=== PATIENT | female | born 1950 | race Caucasian/White ===

== ENCOUNTER 2018-10-06 08:53 | Outpatient (CLI) | payer MEDICARE ==
--- NOTE | 2018-10-06 12:01 | MRI ---
MRI OF THE TEMPEROMANDIBULAR JOINTS: History: Right sided jaw pain when chewing. Patient complains of her mouth only partially opening. Technique: Multiplanar, multisequence MRI images were obtained of the temporomandibular joints without contrast. FINDINGS: The temporomandibular joints are symmetric in appearance. The articular disc is interposed between th e eminence and the condyle. There is appropriate subluxation of the condyle out of the joint with debbie th opening. The articular disc is interposed between the eminence and the condyle with mouth opening. A small amount of fluid is seen in the right maxillary sinus. The visualized intracranial structures and globes are unremarkable. IMPRESSION: No significant temporomandibular joint abnormality. POS: [facility]
== END 2018-10-06 08:54 | disposition home or self-care (01) ==
LOC: BICMRI 08:53
PROVIDERS: ATTEND Dentist General Practice
DX: M26.639 Articular disc disorder of temporomandibular joint, unspecified side (principal)
CPT/HCPCS: 70336